=== PATIENT | female | born 1945 | race Caucasian/White ===

== ENCOUNTER 2016-12-25 13:29 | Outpatient (CLI) | payer OTHER | END 2016-12-25 13:30 | disposition home or self-care (01) | LOC: RT.S 13:29 | PROVIDERS: ATTEND Nurse Practitioner Family | DX: Z01.810 Encounter for preprocedural cardiovascular examination (principal) | CPT/HCPCS: 93005 ==

== ENCOUNTER 2017-01-06 10:37 | Outpatient (CLI) | payer OTHER ==
--- NOTE | 2017-01-07 17:55 | Mammography Report ---
DIGITAL SCREENING MAMMOGRAM: 01/06/2017 CLINICAL INDICATION: A 71-year-old for screening. COMPARISON: 11/2015, 03/2014, 03/2013, 12/2011, 10/2010, 08/2009. TECHNIQUE: Routine CC and MLO projections were obtained of the breasts. FINDINGS: Scattered fibroglandular tissue is present within the breasts. There are no dominant mass es, suspicious microcalcifications, or secondary signs of malignancy. In comparison to the previous studies, there are no significant changes. ASSESSMENT: NO MAMMOGRAPHIC EVIDENCE OF MALIGNANCY. NO SIGNIFICANT INTERVAL CHANGES. RECOMMENDATION: Screening mammography is recommended annually. BIRADS category 1 - negative. STANDARD QUALIFYING STATEMENTS 1. This examination was reviewed with the aid of Computed-Aided Detection (CAD). 2. A negative or benign imaging report should not delay biopsy if clinically suspicious findings are present. Consider surgical consultation if warranted. More than 5% of cancers are not identified b y imaging. 3. Dense breasts may obscure an underlying neoplasm. JOB #: [id number] EXT JOB #:[id number]
== END 2017-01-06 10:38 | disposition home or self-care (01) ==
LOC: DI.S 10:37
PROVIDERS: ATTEND Nurse Practitioner Family
DX: Z12.31 Encounter for screening mammogram for malignant neoplasm of breast (principal)
CPT/HCPCS: 77067

== ENCOUNTER 2017-05-04 11:09 | Emergency (ER) | payer MEDICARE ==
--- NOTE | 2017-05-04 12:33 | ED Physician Documentation ---
PD HPI SKIN - Stated complaint Stated Complaint: MED REACTION - Chief complaint Chief Complaint: Wound - History obtained from History obtained from: Patient - History of Present Illness Timing - onset: Yesterday Timing - duration: Days (05/13) Timing - details: Abrupt onset, Still present (worse today) Location: Face (left forehead/scalp and around the eye.) Quality / character: Painful, Burning Associated symptoms: No: Fever, Myalgias, N/V/D Contributing factors: Exposed to medication (she started abx for dental infection 3 days ago, had pain lower left gum and tooth. Seen by dentist and Dx with gum infection. Was having some pain in left side of face at that time, but rash onset yesterday.) Similar symptoms before: Has not had sx before Recently seen: Clinic (dentist) Review of Systems Constitutional: denies: Fever, Chills Eyes: denies: Decreased vision, Photophobia, Discharge, Irritation Nose: denies: Rhinorrhea / runny nose, Congestion Throat: reports: Dental pain / toothache. denies: Sore throat Cardiac: denies: Chest pain / pressure Respiratory: denies: Cough GI: denies: Nausea, Vomiting, Diarrhea : denies: Dysuria, Frequency Skin: reports: Rash (since ter) PD PAST MEDICAL HISTORY - Past Medical History Past Medical History: Yes Cardiovascular: None, Hypertension Respiratory: None Neuro: None Endocrine/Autoimmune: HyPOthyroidism GI: Other Musculoskeletal: Osteoarthritis, Other Other Past Medical History: RLS - Past Surgical History Past Surgical History: Yes General: Bowel surgery, Colonoscopy HEENT: Cataracts - Present Medications Home Medications: Ambulatory Orders Medication Instructions Recorded Confirmed Levothyroxine [Synthroid] 112 mcg PO QDAC 10/28/12 05/04/17 clonazePAM [Clonazepam] 1 - 1.5 mg PO HS PRN 10/28/12 05/04/17 Lisinopril 10 mg PO DAILY 02/04/16 05/04/17 Pramipexole [Mirapex] 0.25 mg PO QPM 02/04/16 05/04/17 Acetaminophen/Diphenhydramine [Eql 25 - 500 mg PO QPM PRN 02/05/16 05/04/17 Acetaminophen Pm Caplet] Loperamide HCl [Loperamide] 2 mg PO PRN PRN 02/05/16 05/04/17 Amitriptyline [Elavil] 25 mg PO HS #30 tablet 05/04/17 Azithromycin 250 mg PO DAILY 05/04/17 05/04/17 Dexamethasone [Decadron] 4 mg PO DAILY #7 tablet 05/04/17 HYDROcod/ACETAM 5/325 [[place] 5/325] 1 tab PO Q6H PRN #15 tablet 05/04/17 Valacyclovir HCl [Valtrex] 1,000 mg PO TID #21 tablet 05/04/17 - Allergies Allergies/Adverse Reactions: Allergies Allergy/AdvReac Type Severity Reaction Status Date / Time No Known Drug Allergies Allergy Verified 10/28/12 13:58 - Social History Does the pt smoke?: No Smoking Status: Never smoker Does the pt drink ETOH?: No Does the pt have substance abuse?: No - Immunizations Immunizations: Other immun current PD ED PE NORMAL - Vitals Vital signs reviewed: Yes - General General: Alert and oriented X 3, No acute distress, Well developed/nourished - HEENT HEENT: PERRL, EOMI, Other (left lower gum with some redness and swelling. No fluctuance. ) - Neck Neck: Supple, no meningeal sign, No adenopathy - Cardiac Cardiac: RRR, No murmur - Respiratory Respiratory: Clear bilaterally - Abdomen Abdomen: Soft, Non tender - Derm Derm: Warm and dry, Other (left periorbital area, including lids, and side of nose to forehead and to left frontal scalp with tender red rash with small vesicles. No purulence. It demarcates at midline face at forehead and nose. It is not at tip of nose itself. ) PD ED PE EXPANDED - Eyes Eyes: PERRL, Eyelid swelling, Eyelid erythema. No: EOM palsy, Exudate, Corneal abrasion, Fluorescein uptake Results - Vitals Vitals: Oxygen O2 Source Room air PD MEDICAL DECISION MAKING - ED course Complexity details: considered differential (she was thinking med reaction to abx but the rash is clearly shingles. The gum is still slightly red so to continue the abx for that. ), d/w patient Departure - Departure Disposition: 01 Home, Self Care Clinical Impression: Shingles rash Qualifiers: Herpes zoster complications: without complications Qualified Code(s): B02.9 - Zoster without complications Condition: Stable Record reviewed to determine appropriate education?: Yes Instructions: ED Shingles Follow-Up: Peter Damon MD [Primary Care Provider] - Prescriptions: Amitriptyline [Elavil] 25 mg PO HS #30 tablet Dexamethasone [Decadron] 4 mg PO DAILY #7 tablet HYDROcod/ACETAM 5/325 [Henderson 5/325] 1 tab PO Q6H PRN #15 tablet PRN Reason: Pain Valacyclovir HCl [Valtrex] 1,000 mg PO TID #21 tablet Comments: This looks like shingles. It does not appear to be on the eye surface itself. We will treated with oral antiviral medicine Xochitl acyclovir 3 times a day for a week. Also a steroid to decrease the nerve inflammation, Decadron daily for a week. In addition would try to decrease the nerve irritation with amitriptyline nightly for a month. Tylenol or ibuprofen if needed for pain. Add hydrocodone if needed for worse pain. He can continue your antibiotic for the common dental infection as I think that would be independent of this treatment. Follow-up with your primary care this coming week for reevaluation. Discharge Date/Time: 05/04/17 13:30
[2017-05-04] MEDS ORDERED: DEXAMETHASONE 10 MG/ML VIAL PO STA (13:04)
[2017-05-04] MEDS ORDERED: ACYCLOVIR 200 MG CAPSULE PO STA (13:04)
[2017-05-04 13:18] VITALS: BP 155/74
== END 2017-05-04 13:30 | disposition home or self-care (01) ==
LOC: ED 11:09
DX: B02.9 Zoster without complications (principal); I10 Essential (primary) hypertension; E03.9 Hypothyroidism, unspecified
CPT/HCPCS: 99283; A9270

== ENCOUNTER 2018-05-01 08:16 | Outpatient (CLI) | payer MEDICARE ==
[2018-05-01 08:58] LABS: CREATININE 0.9 mg/dL (0.4-1.0)
--- NOTE | 2018-05-01 12:25 | XRAY Report ---
Reason: SIGNIFICANT THUMB DEFORMITY Procedure Date: 05/01/2018 Accession Number: [id number] / [id number] Procedure: XR - Finger(s) BILAT CPT Code: FULL RESULT: EXAM: BILATERAL THUMB DIGIT RADIOGRAPHY EXAM DATE: 05/01/2018 08:58 AM. CLINICAL HISTORY: SIGNIFICANT THUMB DEFORMITY. COMPARISON: None. TECHNIQUE: 3 views each thumb. FINDINGS: Bones: No acute fracture or bone lesion of either side. Joints: Symmetric significant osteoarthritis of the first CMCs/base of each thumb with joint space narrowing, subchondral sclerosis and osteophyte worse on the right. Soft Tissues: Normal. No soft tissue swelling. IMPRESSION: Symmetric degenerative osteoarthritis at the base of each thumb, slightly worse on the right. RADIA
== END 2018-05-01 08:17 | disposition home or self-care (01) ==
LOC: LAB 08:16
PROVIDERS: ATTEND Internal Medicine
DX: M19.042 Primary osteoarthritis, left hand (principal); M19.041 Primary osteoarthritis, right hand; Z87.19 Personal history of other diseases of the digestive system; I10 Essential (primary) hypertension
CPT/HCPCS: 36415; 73140; 82565

== ENCOUNTER 2018-07-13 08:15 | Outpatient (CLI) | payer MEDICARE ==
--- NOTE | 2018-07-13 10:46 | Ultrasound Report ---
Reason: OTHER FECAL ABNORMALITIES Procedure Date: 07/13/2018 Accession Number: [id number] / [id number] Procedure: US - Abdomen Complete CPT Code: FULL RESULT: EXAM: ABDOMEN ULTRASOUND EXAM DATE: 07/13/2018 08:35 AM. CLINICAL HISTORY: Fatty liver. Other fecal abnormalities. COMPARISON: ABDOMEN/PELVIS W/ 02/14/2016 2:41 PM. TECHNIQUE: Real-time scanning was performed with static images obtained. FINDINGS: Liver: Normal echotexture. Maximum hepatic dimension is 18.4 cm. Main portal vein flow: Hepatopetal. Gallbladder: Normal. No stones, wall thickening, or sonographic Chacon's sign. Biliary System: The common bile duct is not well seen. The distal common hepatic duct measures up to 3.5 mm. No intrahepatic or extrahepatic ductal dilatation is identified. Pancreas: Visualized portion is unremarkable. Kidneys: Right: 9.4 cm longitudinally. Normal. No contour-deforming mass, stones, or hydronephrosis. Left: 9.3 cm longitudinally. Normal. No contour-deforming mass, stones, or hydronephrosis. Spleen: 6.9 cm. Normal in size and echotexture. Aorta and Inferior Vena Cava: Unremarkable. Other: None. IMPRESSION: Limited visualization of the common bile duct with no intra or extrahepatic biliary ductal dilation identified. RADIA
== END 2018-07-13 08:16 | disposition home or self-care (01) ==
LOC: DI 08:15
PROVIDERS: ATTEND Internal Medicine
DX: R19.5 Other fecal abnormalities (principal)
CPT/HCPCS: 76700

== ENCOUNTER 2018-11-30 13:31 | Outpatient (CLI) | payer MEDICARE | END 2018-11-30 13:32 | disposition short-term general hospital (02) | LOC: EMS 13:31 | PROVIDERS: ATTEND Surgery | DX: R47.81 Slurred speech (principal) | CPT/HCPCS: A0425; A0429 ==

== ENCOUNTER 2019-01-26 10:55 | Emergency (ER) | payer MEDICARE ==
[2019-01-26 11:32] LABS: BILIRUBIN,URINE NEGATIVE (NEGATIVE); GLUCOSE, URINE (UA) NEGATIVE (NEGATIVE); KETONES,URINE (UA) NEGATIVE (NEGATIVE); LEUKOCYTE ESTERASE, URINE NEGATIVE (NEGATIVE); NITRITE,URINE NEGATIVE (NEGATIVE); OCCULT BLOOD,URINE NEGATIVE (NEGATIVE); PROTEIN,URINE NEGATIVE (NEGATIVE); UROBILINOGEN,URINE 0.2 (NORMAL) E.U./dL (NORMAL)
[2019-01-26 11:35] LABS: CLARITY,URINE CLEAR (CLEAR)
--- NOTE | 2019-01-26 14:59 | ED Physician Documentation ---
PD HPI ALTERED MENTAL STATUS - Stated complaint Stated Complaint: FACIAL NUMBNESS/TROUBLE SPEAKING - Chief complaint Chief Complaint: Neuro - History obtained from History obtained from: Patient - History of Present Illness Timing - onset: Yesterday (Starting yesterday she is had migratory numbness, it started in the left chest and then moved to the right chest, Subsequently in the Leg on the Left She Thinks but She Is Not Quite Sure. Is Associated with Word Finding Difficulties and Slurred Speech. She Says She Was Admitted to [facility] a Couple of Months Ago with Similar Symptoms and Diagnosed with a TIA. We Got Those Records, They Were Reviewed. MRI of the Head Showed White Matter Changes. MRA Was Negative. EKG Was Normal. Discharged with a Diagnosis of TIA. This Is Been Going on since Yesterday and She Does Have a Headache with It Which She Did Not in November. She Denies Fevers or Chills. She Uses Alcohol Daily, but Denies Use so Far Today.) Review of Systems Ten Systems: 10 systems reviewed and negative Constitutional: denies: Fever, Chills, Fatigue Throat: denies: Sore throat Cardiac: denies: Palpitations Respiratory: denies: Dyspnea, Cough GI: denies: Abdominal Pain PD PAST MEDICAL HISTORY - Past Medical History Cardiovascular: None, Hypertension Respiratory: None Endocrine/Autoimmune: HyPOthyroidism GI: Other Musculoskeletal: Osteoarthritis, Other - Past Surgical History Past Surgical History: Yes General: Bowel surgery, Colonoscopy HEENT: Cataracts - Present Medications Home Medications: Ambulatory Orders Medication Instructions Recorded Confirmed Levothyroxine [Synthroid] 112 mcg PO QDAC 10/28/12 05/04/17 clonazePAM [Clonazepam] 1 - 1.5 mg PO HS PRN 10/28/12 05/04/17 Lisinopril 10 mg PO DAILY 02/04/16 05/04/17 Pramipexole [Mirapex] 0.25 mg PO QPM 02/04/16 05/04/17 Acetaminophen/Diphenhydramine [Eql 25 - 500 mg PO QPM PRN 02/05/16 05/04/17 Acetaminophen Pm Caplet] Loperamide HCl [Loperamide] 2 mg PO PRN PRN 02/05/16 05/04/17 Amitriptyline [Elavil] 25 mg PO HS #30 tablet 05/04/17 Azithromycin 250 mg PO DAILY 05/04/17 05/04/17 HYDROcod/ACETAM 5/325 [[place] 5/325] 1 tab PO Q6H PRN #15 tablet 05/04/17 Valacyclovir HCl [Valtrex] 1,000 mg PO TID #21 tablet 05/04/17 dexAMETHasone [Decadron] 4 mg PO DAILY #7 tablet 05/04/17 - Allergies Allergies/Adverse Reactions: Allergies Allergy/AdvReac Type Severity Reaction Status Date / Time No Known Drug Allergies Allergy Verified 01/26/19 11:17 - Social History Does the pt smoke?: No Smoking Status: Never smoker Does the pt drink ETOH?: No Does the pt have substance abuse?: No - Immunizations Immunizations: Other immun current PD ED PE NORMAL - Vitals Vital signs reviewed: Yes - General General: Alert and oriented X 3, Other (Lightly slurred speech, but oriented cogent.) - HEENT HEENT: PERRL, EOMI (No nystagmus) - Neck Neck: Supple, no meningeal sign, No bony TTP - Cardiac Cardiac: RRR, No murmur - Respiratory Respiratory: No respiratory distress, Clear bilaterally - Abdomen Abdomen: Normal bowel sounds, Soft, Non tender - Back Back: No CVA TTP, No spinal TTP - Derm Derm: Normal color, Warm and dry - Extremities Extremities: No edema, No calf tenderness / cord - Neuro Neuro: Alert and oriented X 3, document controller 2-12 intact, No motor deficit, No sensory deficit, Normal speech, Other (NIHSS zero) Eye Opening: Spontaneous Motor: Obeys Commands Verbal: Oriented GCS Score: 15 Results - Vitals Vitals: Vital Signs - 24 hr 01/26/19 01/26/19 11:15 15:16 Temperature 36.5 C Heart Rate 85 74 Respiratory 18 12 Rate Blood Pressure 165/101 H 173/78 H O2 Saturation 98 100 Oxygen O2 Source Room air - EKG (time done) 1146 Rate: Rate (enter#) (78) Rhythm: NSR, LAE [place]: Normal Intervals: Normal DE QRS: Normal Ischemia: Normal ST segments - Labs Labs: Laboratory Tests 01/26/19 01/26/19 01/26/19 11:20 11:20 15:05 WBC 5.7 RBC 3.29 L Hgb 10.9 L Hct 32.6 L MCV 99.1 H MCH 33.1 H MCHC 33.4 RDW 13.2 Plt Count 269 MPV 9.6 Neut # (Auto) 3.3 Lymph # (Auto) 1.4 L Hand # (Auto) 0.8 Eos # (Auto) 0.2 Baso # (Auto) 0.1 Absolute Nucleated RBC 0.00 Nucleated RBC % 0.0 Sodium Potassium Chloride Carbon Dioxide Anion Gap BUN Creatinine Estimated GFR (MDRD) Glucose Calcium Total Bilirubin AST ALT Alkaline Phosphatase Total Protein Albumin Globulin Albumin/Globulin Ratio Lipase TSH Thyroxine (T4) Free T3 pg/mL Urine Color YELLOW Urine Clarity CLEAR Urine pH 6.0 Ur Specific [place] <=1.005 Urine Protein NEGATIVE Urine Glucose (UA) NEGATIVE Urine Ketones NEGATIVE Urine Occult Blood NEGATIVE Urine Nitrite NEGATIVE Urine Bilirubin NEGATIVE Urine Urobilinogen 0.2 (NORMAL) Ur Leukocyte Esterase NEGATIVE Ur Microscopic Review NOT INDICATED Urine Culture Comments NOT INDICATED Urine Opiates Screen NEGATIVE Ur Oxycodone Screen NEGATIVE Urine Methadone Screen NEGATIVE Ur Propoxyphene Screen NEGATIVE Ur Barbiturates Screen NEGATIVE Ur Tricyclics Screen NEGATIVE Ur Phencyclidine Scrn NEGATIVE Ur Amphetamine Screen NEGATIVE U Methamphetamines Scrn NEGATIVE U Benzodiazepines Scrn NEGATIVE Urine Cocaine Screen NEGATIVE U Cannabinoids Screen NEGATIVE Ethyl Alcohol 01/26/19 01/26/19 01/26/19 15:05 15:05 15:05 WBC RBC Hgb Hct MCV MCH MCHC RDW Plt Count MPV Neut # (Auto) Lymph # (Auto) Hand # (Auto) Eos # (Auto) Baso # (Auto) Absolute Nucleated RBC Nucleated RBC % Sodium 135 Potassium 3.8 Chloride 99 L Carbon Dioxide 25 Anion Gap 11.0 BUN 18 Creatinine 0.7 Estimated GFR (MDRD) 82 L Glucose 97 Calcium 9.6 Total Bilirubin 1.0 AST 20 ALT 16 Alkaline Phosphatase 63 Total Protein 7.4 Albumin 4.3 Globulin 3.1 Albumin/Globulin Ratio 1.4 Lipase 20 L TSH 0.14 L Thyroxine (T4) 9.94 Free T3 pg/mL Urine Color Urine Clarity Urine pH Ur Specific [place] Urine Protein Urine Glucose (UA) Urine Ketones Urine Occult Blood Urine Nitrite Urine Bilirubin Urine Urobilinogen Ur Leukocyte Esterase Ur Microscopic Review Urine Culture Comments Urine Opiates Screen Ur Oxycodone Screen Urine Methadone Screen Ur Propoxyphene Screen Ur Barbiturates Screen Ur Tricyclics Screen Ur Phencyclidine Scrn Ur Amphetamine Screen U Methamphetamines Scrn U Benzodiazepines Scrn Urine Cocaine Screen U Cannabinoids Screen Ethyl Alcohol < 5.0 01/26/19 15:05 WBC RBC Hgb Hct MCV MCH MCHC RDW Plt Count MPV Neut # (Auto) Lymph # (Auto) Hand # (Auto) Eos # (Auto) Baso # (Auto) Absolute Nucleated RBC Nucleated RBC % Sodium Potassium Chloride Carbon Dioxide Anion Gap BUN Creatinine Estimated GFR (MDRD) Glucose Calcium Total Bilirubin AST ALT Alkaline Phosphatase Total Protein Albumin Globulin Albumin/Globulin Ratio Lipase TSH Thyroxine (T4) Free T3 pg/mL 2.82 Urine Color Urine Clarity Urine pH Ur Specific [place] Urine Protein Urine Glucose (UA) Urine Ketones Urine Occult Blood Urine Nitrite Urine Bilirubin Urine Urobilinogen Ur Leukocyte Esterase Ur Microscopic Review Urine Culture Comments Urine Opiates Screen Ur Oxycodone Screen Urine Methadone Screen Ur Propoxyphene Screen Ur Barbiturates Screen Ur Tricyclics Screen Ur Phencyclidine Scrn Ur Amphetamine Screen U Methamphetamines Scrn U Benzodiazepines Scrn Urine Cocaine Screen U Cannabinoids Screen Ethyl Alcohol - Rads (name of study) Ct Head Radiology: EMP read contemporaneously (atrophy NAD) PD MEDICAL DECISION MAKING - ED course ED course: 73-year-old woman presents with slightly slurred speech and migratory numbness, it is bilateral therefore stroke/TIA is very unlikely. No clear cause on work-u p today. No tenderness over the temporal arteries. No visual changes. Recommended neurology follow-up. Offered obs stay for neurochecks which she declined. Departure - Departure Disposition: 01 Home, Self Care Clinical Impression: Numbness and tingling Condition: Good Record reviewed to determine appropriate education?: Yes Instructions: ED Paraesthesias Follow-Up: Ronaldo Arechiga MD [Credentialed Staff Provider] - Comments: As discussed, I recommend both primary care and neurology follow-up. Dr. Arechiga is listed on this form. One potential neurologist to see would be Dr. choi in [place], . Return for new or worsening symptoms.
[2019-01-26 15:11] LABS: BASOPHILS # (AUTO) 0.1 10^3/uL (0.0-0.1); BASOPHILS % (AUTO) 1.2 %; EOSINOPHILS # (AUTO) 0.2 10^3/uL (0.0-0.7); EOSINOPHILS % (AUTO) 4.2 %; HGB - HEMOGLOBIN 10.9 g/dL (12.0-16.0); LYMPHOCYTES # (AUTO) 1.4 10^3/uL (1.5-3.5); LYMPHOCYTES % (AUTO) 23.6 %; MEAN CORPUSCULAR HEMOGLOBIN 33.1 pg (27.0-31.0); MEAN CORPUSCULAR HGB CONC 33.4 g/dL (32.0-36.0); MEAN CORPUSCULAR VOLUME 99.1 fL (81.0-99.0); MEAN PLATELET VOLUME 9.6 fL (7.9-10.8); MONOCYTES # (AUTO) 0.8 10^3/uL (0.0-1.0); MONOCYTES % (AUTO) 13.1 %; NEUTROPHILS # (AUTO) 3.3 10^3/uL (1.5-6.6); NEUTROPHILS % (AUTO) 57.6 %; PLT - PLATELET COUNT 269 10^3/uL (130-450); RED BLOOD COUNT 3.29 10^6/uL (4.20-5.40); RED CELL DISTRIBUTION WIDTH 13.2 % (12.0-15.0); WHITE BLOOD COUNT 5.7 x10^3/uL (4.8-10.8)
[2019-01-26 15:18] VITALS: BP 173/78
[2019-01-26 15:27] LABS: ALBUMIN 4.3 g/dL (3.2-5.5); ALBUMIN/GLOBULIN RATIO 1.4 (1.0-2.2); ALKALINE PHOSPHATASE 63 IU/L (42-121); ALT ALANINE AMINOTRANSFERASE 16 IU/L (10-60); AST ASPARTATE AMINOTRANSFERASE 20 IU/L (10-42); BUN - BLOOD UREA NITROGEN 18 mg/dL (6-20); CALCIUM 9.6 mg/dL (8.5-10.3); CARBON DIOXIDE - CO2 25 mmol/L (21-32); CHLORIDE 99 mmol/L (101-111); CREATININE 0.7 mg/dL (0.4-1.0); GFR - MDRD 82 (>89); GLUCOSE 97 mg/dL (70-100); LIPASE 20 U/L (22-51); SODIUM 135 mmol/L (135-145); TOTAL PROTEIN 7.4 g/dL (6.7-8.2)
[2019-01-26 15:28] LABS: MUDS CUTOFF CONCENTRATIONS CUTOFF CONC BELOW:
[2019-01-26 15:54] LABS: AMPHETAMINE SCREEN,URINE NEGATIVE (NEGATIVE); BENZODIAZEPINES SCREEN, URINE NEGATIVE (NEGATIVE); COCAINE SCREEN URINE NEGATIVE (NEGATIVE); METHADONE SCREEN, URINE NEGATIVE (NEGATIVE); METHAMPHETAMINES SCREEN, URINE NEGATIVE (NEGATIVE); OPIATE SCREEN, URINE NEGATIVE (NEGATIVE); OXYCODONE SCREEN, URINE NEGATIVE (NEGATIVE); PROPOXYPHENE SCREEN, URINE NEGATIVE (NEGATIVE); TRICYCLIC ANTIDEPRESSANT,URINE NEGATIVE (NEGATIVE)
--- NOTE | 2019-01-26 16:18 | CT Report ---
Reason: altered Procedure Date: 01/26/2019 Accession Number: [id number] / [id number] Procedure: CT - HEAD WO CPT Code: FULL RESULT: EXAM: CT HEAD EXAM DATE: 01/26/2019 03:57 PM. CLINICAL HISTORY: Altered mental status. COMPARISON: None. TECHNIQUE: Multiaxial CT images were obtained from the foramen magnum to the vertex. Reformats: Sagittal and coronal. IV contrast: None. In accordance with CT protocol optimization, one or more of the following dose reduction techniques were utilized for this exam: automated exposure control, adjustment of mA and/or KV based on patient size, or use of iterative reconstructive technique. FINDINGS: Parenchyma: No intraparenchymal hemorrhage. No evidence of mass, midline shift, or CT findings of acute infarction. Jeronimo-white differentiation is distinct. Mild chronic microangiopathic white matter changes are evident. Extraaxial Spaces: Normal for age. No subdural or epidural collections identified. Ventricles: The ventricles and cortical sulci are prominent, consistent with age-related tissue loss. Sinuses and orbits: Imaged paranasal sinuses, orbits, and mastoids show no significant abnormality. Bones: No evidence of fracture or calvarial defect. Other: None. IMPRESSION: Generalized age-related cortical atrophic changes without evidence of acute intracranial abnormality. RADIA
== END 2019-01-26 16:31 | disposition home or self-care (01) ==
LOC: ED 10:55
DX: R20.0 Anesthesia of skin (principal); R20.2 Paresthesia of skin; R47.81 Slurred speech; I10 Essential (primary) hypertension
CPT/HCPCS: 36415; 70450; 80053; 80306; 80320; 81001; 81003; 83690; 84436; 84443; 84481; 85025; 87086; 93005; 99284

== ENCOUNTER 2019-02-08 07:18 | Outpatient (CLI) | payer MEDICARE ==
[2019-02-08 11:16] LABS: ALBUMIN/GLOBULIN RATIO 1.4 (1.0-2.2); ALKALINE PHOSPHATASE 68 IU/L (42-121); ALT ALANINE AMINOTRANSFERASE 16 IU/L (10-60); AST ASPARTATE AMINOTRANSFERASE 20 IU/L (10-42); BILIRUBIN,TOTAL 0.8 mg/dL (0.2-1.0); BUN - BLOOD UREA NITROGEN 27 mg/dL (6-20); CALCIUM 9.2 mg/dL (8.5-10.3); CARBON DIOXIDE - CO2 28 mmol/L (21-32); CHLORIDE 103 mmol/L (101-111); CHOL/HDL RATIO 2.2 (<4.4); CHOLESTEROL 186 mg/dL; CREATININE 0.9 mg/dL (0.4-1.0); GFR - MDRD 61 (>89); GLUCOSE 81 mg/dL (70-100); HDL CHOLESTEROL 86 mg/dL; LDL CHOLESTEROL,CALCULATED 91 mg/dL; LDL/HDL RATIO 1.1 (<4.4); SODIUM 138 mmol/L (135-145); TOTAL PROTEIN 6.9 g/dL (6.7-8.2); VLDL CHOLESTEROL 9 mg/dL
== END 2019-02-08 07:19 | disposition home or self-care (01) ==
LOC: LAB.S 07:18
PROVIDERS: ATTEND Internal Medicine
DX: E78.5 Hyperlipidemia, unspecified (principal); E03.9 Hypothyroidism, unspecified
CPT/HCPCS: 36415; 80053; 80061; 83721; 84443

== ENCOUNTER 2019-03-01 09:38 | Outpatient (CLI) | payer MEDICARE ==
--- NOTE | 2019-03-01 14:27 | XRAY Report ---
Reason: RIB PAIN LEFT, PLEURODYNIA R07.81 Procedure Date: 03/01/2019 Accession Number: [id number] / [id number] Procedure: XRS - Ribs w/PA Chest LT CPT Code: FULL RESULT: EXAM: LEFT RIB RADIOGRAPHY EXAM DATE: 03/01/2019 09:55 AM. CLINICAL HISTORY: RIB PAIN LEFT, PLEURODYNIA R07. 81. COMPARISON: RIBS 3 VIEW BILAT 03/13/2017 10:47 AM. TECHNIQUE: 1 view of the chest and 2 views of the ribs. FINDINGS: Bones: S-shaped thoracic scoliosis. No definite fracture or bone lesion. Detail of the left lower ribs is poorly seen. Lungs: No focal opacities. No pneumothorax. Small left pleural effusion. No right pleural effusion. Mediastinum: Heart size top normal Other: 2 rounded calcifications adjacent to the left coracoid process.. IMPRESSION: Small left pleural effusion. While no gross displaced rib fracture is seen, a nondisplaced lower left rib fracture is not excluded. If clinical symptoms persist/warrant suggest follow-up imaging in 10-14 days. RADIA
== END 2019-03-01 09:39 | disposition home or self-care (01) ==
LOC: DI.S 09:38
PROVIDERS: ATTEND Nurse Practitioner Family
DX: J90 Pleural effusion, not elsewhere classified (principal)

== ENCOUNTER 2019-06-24 14:19 | Outpatient (CLI) | payer MEDICARE ==
[2019-06-24 18:55] LABS: FOLATE > 49.60 ng/mL (5.90 - >24.8)
== END 2019-06-24 14:20 | disposition home or self-care (01) ==
LOC: LAB.S 14:19
PROVIDERS: ATTEND Internal Medicine Gastroenterology
DX: R63.5 Abnormal weight gain (principal); R19.4 Change in bowel habit
CPT/HCPCS: 36415; 82306; 82607; 82746; 82784; 83516; 86256

== ENCOUNTER 2019-07-25 05:04 | Emergency (ER) | payer MEDICARE ==
[2019-07-25 05:17] VITALS: BP 184/73
[2019-07-25] MEDS ORDERED: MUPIROCIN 2% OINT 1 GM TOP STA (06:01)
--- NOTE | 2019-07-25 06:02 | ED Physician Documentation ---
PD HPI SKIN - Stated complaint Stated Complaint: RASH - Chief complaint Chief Complaint: Wound - History obtained from History obtained from: Patient (Patient is a 73-year-old female who presents with a chief complaint of lower back rash bilaterally That she has had for the last 4 weeks that she describes as dry, nonpainful and somewhat pruritic she is tried using clotrimazole without resolution of her symptoms.She reports she has follow-up with her primary care provider tomorrow.) Review of Systems Constitutional: reports: Reviewed and negative Eyes: reports: Reviewed and negative Ears: reports: Reviewed and negative Nose: reports: Reviewed and negative Throat: reports: Reviewed and negative Cardiac: reports: Reviewed and negative Respiratory: reports: Reviewed and negative GI: reports: Reviewed and negative : reports: Reviewed and negative Skin: reports: Rash Musculoskeletal: reports: Reviewed and negative Neurologic: reports: Reviewed and negative Psychiatric: reports: Reviewed and negative Endocrine: reports: Reviewed and negative Immunocompromised: reports: Reviewed and negative PD PAST MEDICAL HISTORY - Past Medical History Cardiovascular: None, Hypertension Respiratory: None Endocrine/Autoimmune: HyPOthyroidism GI: Other Musculoskeletal: Osteoarthritis, Other - Past Surgical History Past Surgical History: Yes General: Bowel surgery, Colonoscopy HEENT: Cataracts - Present Medications Home Medications: Ambulatory Orders Medication Instructions Recorded Confirmed Levothyroxine [Synthroid] 112 mcg PO QDAC 10/28/12 05/04/17 clonazePAM [Clonazepam] 1 - 1.5 mg PO HS PRN 10/28/12 05/04/17 Pramipexole [Mirapex] 0.25 mg PO QPM 02/04/16 05/04/17 lisinopriL [Lisinopril] 10 mg PO DAILY 02/04/16 05/04/17 Acetaminophen/Diphenhydramine [Eql 25 - 500 mg PO QPM PRN 02/05/16 05/04/17 Acetaminophen Pm Caplet] Loperamide HCl [Loperamide] 2 mg PO PRN PRN 02/05/16 05/04/17 Amitriptyline [Elavil] 25 mg PO HS #30 tablet 05/04/17 Azithromycin 250 mg PO DAILY 05/04/17 05/04/17 HYDROcod/ACETAM 5/325 [[place]illi[place] 5/325] 1 tab PO Q6H PRN #15 tablet 05/04/17 Valacyclovir HCl [Valtrex] 1,000 mg PO TID #21 tablet 05/04/17 dexAMETHasone [Decadron] 4 mg PO DAILY #7 tablet 05/04/17 Mupirocin [Centany] 30 gm TP BID #1 oint...g. 07/25/19 - Allergies Allergies/Adverse Reactions: Allergies Allergy/AdvReac Type Severity Reaction Status Date / Time No Known Drug Allergies Allergy Verified 07/25/19 05:17 - Social History Does the pt smoke?: No Smoking Status: Never smoker Does the pt drink ETOH?: No Does the pt have substance abuse?: No - Immunizations Immunizations: Other immun current PD ED PE NORMAL - Vitals Vital signs reviewed: Yes - General General: Alert and oriented X 3, No acute distress - HEENT HEENT: PERRL - Neck Neck: Supple, no meningeal sign - Cardiac Cardiac: RRR, No murmur - Respiratory Respiratory: Clear bilaterally - Abdomen Abdomen: Normal bowel sounds, Soft, Non tender, Non distended - Derm Derm: Warm and dry, Other (There is a rash on bilateral lower back on both sides it is erythematous there is diffuse areas of honey crusted erythema lesions there is no vesicles and there is no ulcers it is nonpainful there is no crepitus there is no inguinal or axillary lymphadenopathy there is no swelling there is no pain on palpation it is not warm, There is no fluctuance and there is no induration) - Extremities Extremities: No deformity - Neuro Neuro: Alert and oriented X 3 - Psych Psych: Normal mood, Normal affect PD ED PE EXPANDED - Derm Derm: Rash SKin visual: 1 - rash 2 - rash Results - Vitals Vitals: Vital Signs - 24 hr 07/25/19 05:12 Temperature 36.5 C Heart Rate 79 Respiratory 18 Rate Blood Pressure 184/73 H O2 Saturation 100 Oxygen O2 Source Room air PD MEDICAL DECISION MAKING - ED course Complexity details: considered differential (Rash is nonpainful it is bilateral its not in a dermatomal pattern however shingles was in the differential however she is had this rash for 4 weeks we will try topical mupirocin as she had some areas of honey crusted lesions.) Departure - Departure Disposition: 01 Home, Self Care Clinical Impression: Rash Condition: Stable Instructions: Rash Skin Self Care Follow-Up: DERIK AGUILAR MD [Primary Care Provider] - Tomorrow Prescriptions: Mupirocin [Centany] 30 gm TP BID #1 oint...g.
== END 2019-07-25 06:10 | disposition home or self-care (01) ==
LOC: ED 05:04
DX: R21 Rash and other nonspecific skin eruption (principal); I10 Essential (primary) hypertension
CPT/HCPCS: 99282; 99284; A9270

== ENCOUNTER 2019-11-19 12:43 | Outpatient (CLI) | payer MEDICARE ==
[2019-11-19 15:02] LABS: BASOPHILS # (AUTO) 0.1 10^3/uL (0.0-0.1); EOSINOPHILS # (AUTO) 0.2 10^3/uL (0.0-0.7); LYMPHOCYTES # (AUTO) 1.4 10^3/uL (1.5-3.5); LYMPHOCYTES % (AUTO) 23.7 %; MEAN CORPUSCULAR HEMOGLOBIN 33.8 pg (27.0-31.0); MEAN CORPUSCULAR HGB CONC 33.4 g/dL (32.0-36.0); MEAN PLATELET VOLUME 10.8 fL (7.9-10.8); MONOCYTES # (AUTO) 0.5 10^3/uL (0.0-1.0); MONOCYTES % (AUTO) 8.3 %; NEUTROPHILS # (AUTO) 3.8 10^3/uL (1.5-6.6); NEUTROPHILS % (AUTO) 62.5 %; PLT - PLATELET COUNT 280 10^3/uL (130-450); RED BLOOD COUNT 2.96 10^6/uL (4.20-5.40); RED CELL DISTRIBUTION WIDTH 14.1 % (12.0-15.0)
[2019-11-19 15:41] LABS: ALBUMIN 4.3 g/dL (3.2-5.5); ALKALINE PHOSPHATASE 60 IU/L (42-121); ALT ALANINE AMINOTRANSFERASE 18 IU/L (10-60); AST ASPARTATE AMINOTRANSFERASE 20 IU/L (10-42); BILIRUBIN,TOTAL 1.1 mg/dL (0.2-1.0); BUN - BLOOD UREA NITROGEN 23 mg/dL (6-20); CALCIUM 9.3 mg/dL (8.5-10.3); CARBON DIOXIDE - CO2 22 mmol/L (21-32); CHLORIDE 103 mmol/L (101-111); CREATININE 0.9 mg/dL (0.4-1.0); GLUCOSE 90 mg/dL (70-100); SODIUM 134 mmol/L (135-145); TOTAL PROTEIN 6.5 g/dL (6.7-8.2)
[2019-11-19 15:53] LABS: CRP - C-REACTIVE PROTEIN < 1.0 mg/dL (0-1.0)
[2019-11-19 17:05] LABS: RHEUMATOID FACTOR NEGATIVE (Negative)
== END 2019-11-19 12:44 | disposition home or self-care (01) ==
LOC: LAB.S 12:43
PROVIDERS: ATTEND Internal Medicine Rheumatology
DX: M25.50 Pain in unspecified joint (principal)
CPT/HCPCS: 36415; 80053; 85025; 85651; 86140; 86200; 86430

== ENCOUNTER 2019-12-24 13:11 | Outpatient (CLI) | payer MEDICARE ==
--- NOTE | 2019-12-24 15:14 | XRAY Report ---
PROCEDURE: Calcaneus LT INDICATIONS: PAIN IN LEFT FOOT TECHNIQUE: Two views of the calcaneus were acquired. COMPARISON: None FINDINGS: Bones: No fractures or dislocations. No suspicious bony lesions. Soft tissues: No suspicious calcifications. Achilles tendon appears normal. IMPRESSION: No visualized acute fracture or dislocation. However, occult injury cannot be excluded. Recommend oliverio rt interval imaging follow-up in 7-10 days as clinically indicated for additional evaluation. Reviewed by: Reema Maguire MD on 12/24/2019 3:13 PM PDT Approved by: Reema Maguire MD on 12/24/2019 3:13 PM PDT Station ID: [id number]
== END 2019-12-24 13:12 | disposition home or self-care (01) ==
LOC: DI 13:11
PROVIDERS: ATTEND Physician Assistant Medical
DX: M79.672 Pain in left foot (principal)

== ENCOUNTER 2020-02-13 09:58 | Emergency (ER) | payer MEDICARE ==
[2020-02-13] MEDS ORDERED: SODIUM CHLORIDE 0.9% 1,000 ML IV STA (10:23)
[2020-02-13 11:12] LABS: BILIRUBIN,URINE NEGATIVE (NEGATIVE); GLUCOSE, URINE (UA) NEGATIVE (NEGATIVE); KETONES,URINE (UA) NEGATIVE (NEGATIVE); LEUKOCYTE ESTERASE, URINE NEGATIVE (NEGATIVE); NITRITE,URINE NEGATIVE (NEGATIVE); OCCULT BLOOD,URINE NEGATIVE (NEGATIVE); PH,URINE 6.5 PH (5.0-7.5); PROTEIN,URINE NEGATIVE (NEGATIVE); UROBILINOGEN,URINE 0.2 (NORMAL) E.U./dL (NORMAL)
[2020-02-13 11:13] LABS: CLARITY,URINE CLEAR (CLEAR)
[2020-02-13 11:17] LABS: BASOPHILS # (AUTO) 0.1 10^3/uL (0.0-0.1); BASOPHILS % (AUTO) 1.3 %; EOSINOPHILS # (AUTO) 0.2 10^3/uL (0.0-0.7); EOSINOPHILS % (AUTO) 3.8 %; HGB - HEMOGLOBIN 10.5 g/dL (12.0-16.0); LYMPHOCYTES # (AUTO) 1.6 10^3/uL (1.5-3.5); LYMPHOCYTES % (AUTO) 24.7 %; MEAN CORPUSCULAR HGB CONC 33.5 g/dL (32.0-36.0); MEAN CORPUSCULAR VOLUME 101.3 fL (81.0-99.0); MEAN PLATELET VOLUME 10.2 fL (7.9-10.8); MONOCYTES # (AUTO) 0.6 10^3/uL (0.0-1.0); MONOCYTES % (AUTO) 9.4 %; NEUTROPHILS # (AUTO) 3.8 10^3/uL (1.5-6.6); NEUTROPHILS % (AUTO) 60.3 %; PLT - PLATELET COUNT 260 10^3/uL (130-450); RED BLOOD COUNT 3.09 10^6/uL (4.20-5.40); RED CELL DISTRIBUTION WIDTH 14.7 % (12.0-15.0); WHITE BLOOD COUNT 6.4 x10^3/uL (4.8-10.8)
[2020-02-13 11:36] LABS: ALBUMIN 4.4 g/dL (3.2-5.5); ALBUMIN/GLOBULIN RATIO 1.6 (1.0-2.2); BILIRUBIN,TOTAL 1.2 mg/dL (0.2-1.0); CALCIUM 9.3 mg/dL (8.5-10.3); CREATININE 0.8 mg/dL (0.4-1.0); INR 1.1 (0.8-1.2); TOTAL PROTEIN 7.1 g/dL (6.7-8.2)
[2020-02-13] MEDS ORDERED: KETOROLAC 30 MG/ML VIAL IVP STA (11:54)
[2020-02-13] MEDS ORDERED: ACETAMINOPHEN 325 MG TABLET PO STA (11:54)
--- NOTE | 2020-02-13 12:27 | CT Report ---
PROCEDURE: HEAD WO INDICATIONS: headache, numbness TECHNIQUE: Noncontrast 4.5 mm thick angled axial sections acquired from the foramen magnum to the vertex. For r adiation dose reduction, the following was used: automated exposure control, adjustment of mA and/or kV according to patient size. COMPARISON: None. FINDINGS: Image quality: Excellent. CSF spaces: Basal cisterns are patent. No extra-axial fluid collections. Ventricles are normal in size and shape. Brain: No midline shift. No intracranial masses or hemorrhage. Jeronimo-white matter interface is norm al. Skull and face: Calvarium and visualized facial bones are intact, without suspicious lesions. Sinuses: Visualized sinuses and mastoids are clear. IMPRESSION: No acute intracranial process. Reviewed by: Ed Cohen MD on 02/13/2020 12:26 PM PDT Approved by: Ed Cohen MD on 02/13/2020 12:26 PM PDT Station ID: [id number]
--- NOTE | 2020-02-13 12:43 | ED Physician Documentation ---
History of Present Illness - Stated complaint Stated Complaint: STOKE LIKE SYMPTOMS - Chief complaint Chief Complaint: Neuro - History obtained from History obtained from: Patient - Additonal information Additional information: Patient comes emergency department complaining of feeling "off". She states she has had 2 areas of pain in the back of her head for the last 3 weeks and now this morning she also had a headache in the front. She states that she experienced numbness this morning, first extending from her hand all the way up into her neck and face, and then after that went away on the right side, she experienced the same thing on the left. She describes this as a feeling of "my arms just when out". Patient denies Any other neurologic symptoms. No difficulty with speaking or swallowing. No weakness. Patient states she has otherwise been feeling well. No dysuria or hematuria. No nausea or vomiting. No abdominal or chest pain. No shortness of breath. Review of Systems Ten Systems: 10 systems reviewed and negative Constitutional: reports: Other (Headache) Eyes: reports: Reviewed and negative. denies: Loss of vision Ears: reports: Reviewed and negative Nose: reports: Reviewed and negative Throat: reports: Reviewed and negative Cardiac: reports: Reviewed and negative Respiratory: reports: Reviewed and negative. denies: Dyspnea GI: reports: Reviewed and negative. denies: Nausea, Vomiting : reports: Reviewed and negative Skin: reports: Reviewed and negative Musculoskeletal: reports: Reviewed and negative Neurologic: reports: Numbness, Headache. denies: Focal weakness, Confused, Altered mental status, Head injury Psychiatric: reports: Reviewed and negative Endocrine: reports: Reviewed and negative Immunocompromised: reports: Reviewed and negative PD PAST MEDICAL HISTORY - Past Medical History Cardiovascular: None, Hypertension Respiratory: None Endocrine/Autoimmune: HyPOthyroidism GI: Other Musculoskeletal: Osteoarthritis, Other - Past Surgical History Past Surgical History: Yes General: Bowel surgery, Colonoscopy HEENT: Cataracts - Present Medications Home Medications: Ambulatory Orders Medication Instructions Recorded Confirmed Levothyroxine [Synthroid] 112 mcg PO QDAC 10/28/12 05/04/17 clonazePAM [Clonazepam] 1 - 1.5 mg PO HS PRN 10/28/12 05/04/17 Pramipexole [Mirapex] 0.25 mg PO QPM 02/04/16 05/04/17 lisinopriL [Lisinopril] 10 mg PO DAILY 02/04/16 05/04/17 Acetaminophen/Diphenhydramine [Eql 25 - 500 mg PO QPM PRN 02/05/16 05/04/17 Acetaminophen Pm Caplet] Loperamide HCl [Loperamide] 2 mg PO PRN PRN 02/05/16 05/04/17 Amitriptyline [Elavil] 25 mg PO HS #30 tablet 05/04/17 Azithromycin 250 mg PO DAILY 05/04/17 05/04/17 HYDROcod/ACETAM 5/325 [[place] 5/325] 1 tab PO Q6H PRN #15 tablet 05/04/17 Valacyclovir HCl [Valtrex] 1,000 mg PO TID #21 tablet 05/04/17 dexAMETHasone [Decadron] 4 mg PO DAILY #7 tablet 05/04/17 Mupirocin [Centany] 30 gm TP BID #1 oint...g. 07/25/19 - Allergies Allergies/Adverse Reactions: Allergies Allergy/AdvReac Type Severity Reaction Status Date / Time No Known Drug Allergies Allergy Verified 07/25/19 05:17 - Social History Does the pt smoke?: No Smoking Status: Never smoker Does the pt drink ETOH?: No Does the pt have substance abuse?: No - Immunizations Immunizations: Other immun current PD ED PE NORMAL - Vitals Vital signs reviewed: Yes - General General: Alert and oriented X 3, No acute distress - HEENT HEENT: Atraumatic, PERRL, EOMI, Moist mucous membranes - Neck Neck: Supple, no meningeal sign - Cardiac Cardiac: RRR, No murmur, Strong equal pulses - Respiratory Respiratory: No respiratory distress, Clear bilaterally - Abdomen Abdomen: Soft, Non tender, Non distended - Back Back: No CVA TTP, No spinal TTP - Derm Derm: Normal color, Warm and dry, No rash - Extremities Extremities: No deformity, No edema, No calf tenderness / cord - Neuro Neuro: Alert and oriented X 3, director consumer 2-12 intact, No motor deficit, No sensory deficit, Normal speech - Psych Psych: Normal mood, Normal affect Results - Vitals Vitals: Vital Signs - 24 hr 02/13/20 02/13/20 10:02 12:48 Temperature 37.3 C Heart Rate 80 79 Respiratory 18 20 Rate Blood Pressure 186/71 H 166/54 H O2 Saturation 97 100 Oxygen O2 Source Room air - Labs Labs: Laboratory Tests 02/13/20 02/13/20 02/13/20 10:45 11:10 11:10 WBC 6.4 RBC 3.09 L Hgb 10.5 L Hct 31.3 L MCV 101.3 H MCH 34.0 H MCHC 33.5 RDW 14.7 Plt Count 260 MPV 10.2 Neut # (Auto) 3.8 Lymph # (Auto) 1.6 [place] # (Auto) 0.6 Eos # (Auto) 0.2 Baso # (Auto) 0.1 Absolute Nucleated RBC 0.00 Nucleated RBC % 0.0 PT 12.0 INR 1.1 Sodium Potassium Chloride Carbon Dioxide Anion Gap BUN Creatinine Estimated GFR (MDRD) Glucose Calcium Total Bilirubin AST ALT Alkaline Phosphatase Total Protein Albumin Globulin Albumin/Globulin Ratio Lipase Urine Color YELLOW Urine Clarity CLEAR Urine pH 6.5 Ur Specific [place] 1.010 Urine Protein NEGATIVE Urine Glucose (UA) NEGATIVE Urine Ketones NEGATIVE Urine Occult Blood NEGATIVE Urine Nitrite NEGATIVE Urine Bilirubin NEGATIVE Urine Urobilinogen 0.2 (NORMAL) Ur Leukocyte Esterase NEGATIVE Ur Microscopic Review NOT INDICATED Urine Culture Comments NOT INDICATED 02/13/20 11:10 WBC RBC Hgb Hct MCV MCH MCHC RDW Plt Count MPV Neut # (Auto) Lymph # (Auto) [place] # (Auto) Eos # (Auto) Baso # (Auto) Absolute Nucleated RBC Nucleated RBC % PT INR Sodium 138 Potassium 4.3 Chloride 103 Carbon Dioxide 24 Anion Gap 11.0 BUN 27 H Creatinine 0.8 Estimated GFR (MDRD) 70 L Glucose 90 Calcium 9.3 Total Bilirubin 1.2 H AST 24 ALT 20 Alkaline Phosphatase 74 Total Protein 7.1 Albumin 4.4 Globulin 2.7 Albumin/Globulin Ratio 1.6 Lipase 20 L Urine Color Urine Clarity Urine pH Ur Specific [place] Urine Protein Urine Glucose (UA) Urine Ketones Urine Occult Blood Urine Nitrite Urine Bilirubin Urine Urobilinogen Ur Leukocyte Esterase Ur Microscopic Review Urine Culture Comments - Rads (name of study) Ct head Radiology: Final report received, EMP read indepedently, See rad report PD MEDICAL DECISION MAKING - ED course Complexity details: reviewed results, re-evaluated patient, considered differential, d/w patient ED course: Patient was worked up with labs and CT head, and given IV fluids in the em ergency department. She was found to be feeling better Was unremarkable. We have discussed that there is no emergent cause of the patient's headache that has been identified. It is not clear what caused the numbness this morning but the successive, bilateral distribution of the numbness makes a CVA very unlikely. We have discussed home management of the symptoms and the need for follow-up with the patient's primary care physician. We have discussed the usual indications for return. Departure - Departure Disposition: 01 Home, Self Care Clinical Impression: Paresthesia of upper extremity Headache Qualifiers: Headache type: unspecified Headache chronicity pattern: acute headache Intractability: not intractable Qualified Code(s): R51.9 - Headache, unspecified Condition: Stable Instructions: ED Cephalgia Unspecified Comments: Your labs and CT scan look good. It is not clear why you are feeling strange today. You most likely have a tension headache and should follow-up with your primary care doctor about this as an outpatient. You may take ibuprofen and Tylenol to help the symptoms if needed. Your CT scan does not show a stroke, hemorrhage, or tumor. There is no evidence of anything emergent or serious going on in your brain at this time. Please be sure to get rest and drink plenty of fluids at home. Discharge Date/Time: 02/13/20 12:54
[2020-02-13 12:49] VITALS: BP 166/54
== END 2020-02-13 12:54 | disposition home or self-care (01) ==
LOC: ED 09:58
DX: R20.2 Paresthesia of skin (principal); R51.9 Headache, unspecified
CPT/HCPCS: 36415; 70450; 80053; 81003; 83690; 85025; 85610; 96374; 99284; A9270; 81001; 87086

== ENCOUNTER 2020-03-17 13:47 | Outpatient (CLI) | payer MEDICARE | END 2020-03-17 13:48 | disposition critical access hospital (66) | LOC: EMS 13:47 | PROVIDERS: ATTEND Surgery | DX: R51.9 Headache, unspecified (principal); R68.89 Other general symptoms and signs; Z86.73 Personal history of transient ischemic attack (TIA), and cerebral infarction without residual deficits | CPT/HCPCS: A0425; A0429 ==

== ENCOUNTER 2020-03-17 14:16 | Emergency (ER) | payer MEDICARE ==
--- NOTE | 2020-03-17 14:29 | ED Physician Documentation ---
PD HPI FOCAL NEURO - Stated complaint Stated Complaint: LYONS - History obtained from History obtained from: Patient, EMS - Additional information Additional information: 74-year-old woman with history of TIAs presents with headache that she noticed when she got up this morning. She went to bed around 9 PM last night and woke up this morning with pain that she says feels like a tension headache that goes from her forehead a back to the occiput. It is associated with heaviness on the left side. She has a history of MRIs showing no history of strokes, but white matter changes. She has seen a neurologist without specific diagnoses for these recurrent episodes. The headache is different than her usual. She denies weakness, numbness, tingling, chest pain, trouble breathing. She had another MRI about a week ago that per her showed improvement of her previously seen white matter changes again without acute disease. Review of Systems Ten Systems: 10 systems reviewed and negative Constitutional: denies: Fever, Chills Cardiac: reports: Reviewed and negative Respiratory: reports: Reviewed and negative PD PAST MEDICAL HISTORY - Past Medical History Cardiovascular: None, Hypertension Respiratory: None Endocrine/Autoimmune: HyPOthyroidism GI: Other Musculoskeletal: Osteoarthritis, Other - Past Surgical History Past Surgical History: Yes General: Bowel surgery, Colonoscopy HEENT: Cataracts - Present Medications Home Medications: Ambulatory Orders Medication Instructions Recorded Confirmed Levothyroxine [Synthroid] 112 mcg PO QDAC 10/28/12 03/17/20 clonazePAM [Clonazepam] 1 - 1.5 mg PO HS PRN 10/28/12 03/17/20 Pramipexole [Mirapex] 0.25 mg PO QPM 02/04/16 03/17/20 lisinopriL [Lisinopril] 10 mg PO DAILY 02/04/16 03/17/20 Acetaminophen/Diphenhydramine [Eql 25 - 500 mg PO QPM PRN 02/05/16 03/17/20 Acetaminophen Pm Caplet] Loperamide HCl [Loperamide] 2 mg PO PRN PRN 02/05/16 03/17/20 Amitriptyline [Elavil] 25 mg PO HS #30 tablet 05/04/17 03/17/20 Azithromycin 250 mg PO DAILY 05/04/17 03/17/20 HYDROcod/ACETAM 5/325 [[place] 5/325] 1 tab PO Q6H PRN #15 tablet 05/04/17 03/17/20 Valacyclovir HCl [Valtrex] 1,000 mg PO TID #21 tablet 05/04/17 03/17/20 dexAMETHasone [Decadron] 4 mg PO DAILY #7 tablet 05/04/17 03/17/20 Mupirocin [Centany] 30 gm TP BID #1 oint...g. 07/25/19 03/17/20 - Allergies Allergies/Adverse Reactions: Allergies Allergy/AdvReac Type Severity Reaction Status Date / Time No Known Drug Allergies Allergy Verified 03/17/20 14:34 - Social History Does the pt smoke?: No Smoking Status: Never smoker Does the pt drink ETOH?: No Does the pt have substance abuse?: No - Immunizations Immunizations: Other immun current PD ED PE NORMAL - Vitals Vital signs reviewed: Yes - General General: Alert and oriented X 3, No acute distress - HEENT HEENT: PERRL, EOMI, Dentition benign - Neck Neck: Supple, no meningeal sign, No bony TTP - Cardiac Cardiac: RRR, No murmur - Respiratory Respiratory: No respiratory distress, Clear bilaterally - Abdomen Abdomen: Soft, Non tender - Back Back: No CVA TTP, No spinal TTP - Derm Derm: Normal color, Warm and dry - Extremities Extremities: No edema, No calf tenderness / cord - Neuro Neuro: Alert and oriented X 3, No motor deficit, No sensory deficit, Normal speech NIHSS - Time Time: 14:30 - Level of Consciousness Level of consciousness: (0) Alert, Keenly responsive LOC Questions: (0) Answers both Q's correct LOC Commands: (0) Performs both correctly - Gaze Best Gaze: (0) Normal - Visual Visual: (0) No loss - Facial Palsy Facial Palsy: (0) Normal, symmetrical movement - Motor Arms (both separate) Motor Arm (right): (0) No drift Motor Arm (left): (0) No drift - Motor Legs (both separate) Motor Leg (right): (0) No drift Motor Leg (left): (0) No drift - Limb Ataxia Limb Ataxia: (0) Absent - Sensory Sensory: (0) Normal - Best Language Best Language: (0) No aphasia - Dysarthria Dysarthria: (0) Normal - Extinction and Inattention (formally neg Extinction and inattention: (0) No abnormality - Total Score/Results Total Score/Result: 0 Results - Vitals Vitals: Vital Signs - 24 hr 03/17/20 03/17/20 14:20 15:05 Temperature 36.8 C Heart Rate 80 74 Respiratory 16 16 Rate Blood Pressure 163/75 H 174/69 H O2 Saturation 97 99 Oxygen O2 Source Room air - EKG (time done) 1435 Rate: Rate (enter#) (73) Rhythm: NSR [place]: Normal Intervals: Normal [place] QRS: Normal Ischemia: Normal ST segments - Labs Labs: Laboratory Tests 03/17/20 03/17/20 15:10 15:10 WBC 6.4 RBC 3.05 L Hgb 10.2 L Hct 31.4 L MCV 103.0 H MCH 33.4 H MCHC 32.5 RDW 14.3 Plt Count 264 MPV 10.0 Neut # (Auto) 3.2 Lymph # (Auto) 2.1 [place] # (Auto) 0.7 Eos # (Auto) 0.3 Baso # (Auto) 0.1 Absolute Nucleated RBC 0.00 Nucleated RBC % 0.0 Sodium 133 L Potassium 4.7 Chloride 98 L Carbon Dioxide 25 Anion Gap 10.0 BUN 27 H Creatinine 0.9 Estimated GFR (MDRD) 61 L Glucose 86 Calcium 9.4 PD MEDICAL DECISION MAKING - ED course ED course: 74-year-old woman with vague neurologic symptoms with a headache and some left- sided heaviness, not numbness or weakness. No evidence of stroke on exam. Cranial imaging and labs are at her baseline. She did feel better after Reglan, question of a migrainous cause. Departure - Departure Disposition: 01 Home, Self Care Clinical Impression: Paresthesia Headache Qualifiers: Headache type: other headache syndrome Qualified Code(s): G44.89 - Other headache syndrome Condition: Good Record reviewed to determine appropriate education?: Yes Instructions: ED Paraesthesias Comments: The cause of your symptoms is not completely clear, that said there is no sign of TIA or stroke on exam or head CT. Return for new or worsening symptoms. Follow-up with your neurologist. Continue current medications.
[2020-03-17] MEDS ORDERED: METOCLOPRAMIDE 10 MG/2 ML VIAL IVP STA (14:37)
--- NOTE | 2020-03-17 15:09 | CT Report ---
PROCEDURE: HEAD WO INDICATIONS: stroke like symptoms TECHNIQUE: Noncontrast 4.5 mm thick angled axial sections acquired from the foramen magnum to the vertex. For r adiation dose reduction, the following was used: automated exposure control, adjustment of mA and/or kV according to patient size. COMPARISON: 12/24/2019 and 01/26/2019 FINDINGS: Image quality: Excellent. CSF spaces: Basal cisterns are patent. No extra-axial fluid collections. The ventricles are symmet rosa in size and shape. Brain: No intracranial bleeds or masses. There is cerebral volume loss for age, with resultant vent ricular and sulcal prominence. There are periventricular and deep white matter chronic small vessel ischemic changes. There is intracranial internal carotid artery atherosclerosis. Skull and face: Calvarium and visualized facial bones appear intact, without suspicious lesions. Sinuses: Visualized sinuses and mastoids are clear. IMPRESSION: No acute intracranial disease process. Reviewed by: Magaly Epps MD, PhD on 03/17/2020 3:07 PM PST Approved by: Magaly Epps MD, PhD on 03/17/2020 3:07 PM PST Station ID: [id number]
[2020-03-17 15:19] LABS: BASOPHILS # (AUTO) 0.1 10^3/uL (0.0-0.1); BASOPHILS % (AUTO) 1.3 %; EOSINOPHILS # (AUTO) 0.3 10^3/uL (0.0-0.7); EOSINOPHILS % (AUTO) 4.6 %; HGB - HEMOGLOBIN 10.2 g/dL (12.0-16.0); LYMPHOCYTES # (AUTO) 2.1 10^3/uL (1.5-3.5); LYMPHOCYTES % (AUTO) 32.5 %; MEAN CORPUSCULAR HEMOGLOBIN 33.4 pg (27.0-31.0); MEAN CORPUSCULAR HGB CONC 32.5 g/dL (32.0-36.0); MONOCYTES # (AUTO) 0.7 10^3/uL (0.0-1.0); MONOCYTES % (AUTO) 10.5 %; NEUTROPHILS # (AUTO) 3.2 10^3/uL (1.5-6.6); NEUTROPHILS % (AUTO) 50.8 %; PLT - PLATELET COUNT 264 10^3/uL (130-450); RED BLOOD COUNT 3.05 10^6/uL (4.20-5.40); RED CELL DISTRIBUTION WIDTH 14.3 % (12.0-15.0); WHITE BLOOD COUNT 6.4 x10^3/uL (4.8-10.8)
[2020-03-17 15:29] LABS: CALCIUM 9.4 mg/dL (8.5-10.3); CREATININE 0.9 mg/dL (0.4-1.0)
[2020-03-17 15:58] VITALS: BP 141/75
== END 2020-03-17 15:57 | disposition home or self-care (01) ==
LOC: EDUNIT# → ED 14:16
DX: G44.89 Other headache syndrome (principal); R20.2 Paresthesia of skin; I10 Essential (primary) hypertension; Z86.73 Personal history of transient ischemic attack (TIA), and cerebral infarction without residual deficits
CPT/HCPCS: 36415; 70450; 80048; 85025; 93005; 96374; 99284; J2765

== ENCOUNTER 2020-04-18 09:21 | Outpatient (CLI) | payer MEDICARE | END 2020-04-18 09:22 | disposition home or self-care (01) | LOC: COV 09:21 | PROVIDERS: ATTEND Family Medicine | DX: R05 Cough (principal); R06.02 Shortness of breath; M79.10 Myalgia, unspecified site; R53.83 Other fatigue; R07.0 Pain in throat; R09.81 Nasal congestion; J34.89 Other specified disorders of nose and nasal sinuses; Z20.828 Contact with and (suspected) exposure to other viral communicable diseases ==

== ENCOUNTER 2020-05-10 12:16 | Outpatient (CLI) | payer MEDICARE | END 2020-05-10 12:17 | disposition home or self-care (01) | LOC: COV 12:16 | PROVIDERS: ATTEND Family Medicine | DX: R05 Cough (principal); Z20.828 Contact with and (suspected) exposure to other viral communicable diseases; R06.02 Shortness of breath; R53.83 Other fatigue; R09.81 Nasal congestion; R11.2 Nausea with vomiting, unspecified; R19.7 Diarrhea, unspecified; J02.9 Acute pharyngitis, unspecified; R68.83 Chills (without fever) ==

== ENCOUNTER 2020-05-18 07:30 | Outpatient (CLI) | payer MEDICARE ==
--- NOTE | 2020-05-18 08:34 | XRAY Report ---
PROCEDURE: Chest 2 View X-Ray INDICATIONS: SOA R06.02 TECHNIQUE: 2 view(s) of the chest. COMPARISON: 03/01/2019, 02/14/2016. FINDINGS: Surgical changes and devices: None. Lungs and pleura: No pleural effusions or pneumothorax. Lungs are clear. Mediastinum: Tortuous thoracic aorta is seen. Heart size is normal. Bones and chest wall: S-shaped scoliosis of thoracolumbar spine is noted. No suspicious bony abnorma lities. Soft tissues appear unremarkable. IMPRESSION: No acute cardiopulmonary pathology. Scoliosis. Reviewed by: Zen Thompson MD on 05/18/2020 8:33 AM PST Approved by: Zen Thompson MD on 05/18/2020 8:33 AM PST Station ID: [id number]
== END 2020-05-18 07:31 | disposition home or self-care (01) ==
LOC: DI.S 07:30
PROVIDERS: ATTEND Internal Medicine
DX: R06.02 Shortness of breath (principal); M41.85 Other forms of scoliosis, thoracolumbar region

== ENCOUNTER 2020-06-03 12:07 | Outpatient (CLI) | payer MEDICARE ==
--- NOTE | 2020-06-03 17:44 | Ultrasound Report ---
PROCEDURE: Head or Neck Soft Tissue INDICATIONS: LYMPHADENOPATHY TECHNIQUE: Real time scanning was performed of the neck region of interest, with image documentation . TECHNIQUE: Real-time scanning was performed of the thyroid gland, with image documentation. COMPARISON: None. FINDINGS: Right: 2.9 x 1.4 x 0.9 cm with a slightly heterogeneous appearance. Normal vascularity. Within the i nferior right thyroid gland posteriorly is a solid (2) hypoechoic (2) mass with ill-defined borders m easuring 0.9 x 0.9 x 0.9 cm. This is wider than tall. No echogenic foci. Left: 2.4 x 0.9 x 0.8 cm with a slightly heterogeneous appearance. Normal vascularity. Within the mi d left thyroid gland anteriorly there is a peripherally calcified (1) hypoechoic (2) possibly solid ( 2) nodule with smooth borders measuring 0.5 x 0.7 x 0.8 cm. This is wider than tall. Isthmus: 2 mm without suspicious nodule. Subcentimeter short axis lymph nodes with normal fatty hilum are noted bilaterally. IMPRESSION: Bilateral Ti-Rads 4 nodules measuring less than 1 cm which require no follow-up. Slightly heterogeneous appearance of the thyroid gland which may be seen in a setting of chronic thyr oiditis. Bilateral subcentimeter short axis lymph nodes. Reviewed by: Naif Arzate DO on 06/03/2020 4:43 PM [place] Approved by: Naif Arzate DO on 06/03/2020 4:43 PM [place] Station ID: [id number]
== END 2020-06-03 12:08 | disposition home or self-care (01) ==
LOC: DI 12:07
PROVIDERS: ATTEND Internal Medicine
DX: E04.2 Nontoxic multinodular goiter (principal)

== ENCOUNTER 2020-06-03 12:12 | Outpatient (CLI) | payer MEDICARE ==
[2020-06-03 14:30] LABS: FREE T3 2.43 pg/mL (2.5-3.9)
[2020-06-03 14:59] LABS: FREE T4 (FREE THYROXINE) 1.3 ng/dL (0.58-1.64)
== END 2020-06-03 12:13 | disposition home or self-care (01) ==
LOC: LAB 12:12
PROVIDERS: ATTEND Internal Medicine
DX: E03.9 Hypothyroidism, unspecified (principal)
CPT/HCPCS: 36415; 84439; 84443; 84481; 86376; 86800

== ENCOUNTER 2020-07-12 07:51 | Outpatient (CLI) | payer MEDICARE | END 2020-07-12 07:52 | disposition home or self-care (01) | LOC: DI 07:51 | PROVIDERS: ATTEND Internal Medicine Pulmonary Disease | DX: R06.00 Dyspnea, unspecified (principal); I07.1 Rheumatic tricuspid insufficiency | CPT/HCPCS: 93306 ==

== ENCOUNTER 2020-11-08 10:41 | Outpatient (CLI) | payer MEDICARE ==
[2020-11-08 15:09] LABS: THYROID STIMULATING HORMONE 7.6 uIU/mL (0.34-5.60)
[2020-11-08 15:57] LABS: FREE T4 (FREE THYROXINE) 1.01 ng/dL (0.58-1.64)
== END 2020-11-08 10:42 | disposition home or self-care (01) ==
LOC: LAB.S 10:41
PROVIDERS: ATTEND Internal Medicine
DX: E03.9 Hypothyroidism, unspecified (principal)
CPT/HCPCS: 36415; 84439; 84443